=== PATIENT | male | born 1980 | race African-American/Black ===

== ENCOUNTER 2018-01-28 10:02 | Emergency (ER) | payer SELFPAY ==
[2018-01-28] MEDS ORDERED: KETOROLAC 30 MG/ML INJ ONE (10:35)
[2018-01-28] MEDS ORDERED: CYCLOBENZAPRINE 10 MG TAB ONE (10:35)
[2018-01-28] MEDS ORDERED: HYDROCODONE/APAP 5/325 MG TAB ONE (10:36)
--- NOTE | 2018-01-28 11:00 | ER ---
Nurse's Notes [facility] Name: Anderson Choudhury Age: 37 yrs Sex: Male : 1980 Arrival Date: 01/28/2018 Time: 10:03 Bed 18 Private MD: Diagnosis: Strain of muscle, fascia and tendon of left hip Presentation: 01/28 10:08 Presenting complaint: Patient states: Left low back and hip pain for 3 days that is aj worse with movement. Reports tingling in left leg. Reports "stepping in a hole 3 days ago.". Transition of care: patient was not received from another setting of care. Onset of symptoms was January 28, 2018. Risk Assessment: Do you want to hurt yourself or someone else? Patient reports no desire to harm self or others. Initial Sepsis Screen: Does the patient meet any 2 criteria? No. Patient's initial sepsis screen is negative. Does the patient have a suspected source of infection? No. Patient's initial sepsis screen is negative. Care prior to arrival: None. 10:08 Method Of Arrival: Wheelchair aj 10:08 Acuity: MALATHI 4 aj Triage Assessment: 10:08 General: Appears in no apparent distress. comfortable, Behavior is calm, cooperative, aj appropriate for age. Pain: Complains of pain in buttocks and left leg. Neuro: Level of Consciousness is awake, alert, obeys commands, Oriented to person, place, time, situation, Appropriate for age. Respiratory: Airway is patent Respiratory effort is even, unlabored, Respiratory pattern is regular, symmetrical. Derm: Skin is intact, is healthy with good turgor, Skin is pink, warm \\T\\ dry. normal. Musculoskeletal: Reports pain in buttocks and left leg. Historical: - Allergies: 10:08 No Known Allergies; aj - Home Meds: 10:08 None [Active]; aj - PMHx: 10:08 None; aj - PSHx: 10:08 Hernia repair; aj - Immunization history:: Adult Immunizations up to date. - Social history:: Smoking status: Patient uses tobacco products, smokes one-half pack cigarettes per day. - Ebola Screening: : Patient negative for fever greater than or equal to 101.5 degrees Fahrenheit, and additional compatible Ebola Virus Disease symptoms Patient denies exposure to infectious person Patient denies travel to an Ebola-affected area in the 21 days before illness onset No symptoms or risks identified at this time. Screenin:12 Abuse screen: Denies threats or abuse. Denies injuries from another. Nutritional hj screening: No deficits noted. Tuberculosis screening: No symptoms or risk factors identified. Fall Risk None identified. Assessment: 10:13 General: Appears in no apparent distress. uncomfortable, Behavior is calm, cooperative, hj appropriate for age. Pain: Complains of pain in left low back and buttocks. Pain: Pain radiates to left leg. Neuro: Level of Consciousness is awake, alert, obeys commands, Oriented to. Cardiovascular: Capillary refill < 3 seconds Patient's skin is warm and dry. Respiratory: Airway is patent Respiratory effort is even, unlabored, Respiratory pattern is regular, symmetrical. GI: No signs and/or symptoms were reported involving the gastrointestinal system. : No signs and/or symptoms were reported regarding the genitourinary system. EENT: No signs and/or symptoms were reported regarding the EENT system. Derm: No signs and/or symptoms reported regarding the dermatologic system. Musculoskeletal: Circulation, motion, and sensation intact. Capillary refill Range of motion:. Vital Signs: 10:08 BP 127 / 91; Pulse 65; Resp 19; Temp 97.0; Pulse Ox 100% on R/A; Weight 108.86 kg; aj Height 6 ft. 2 in. (187.96 cm); 11:09 BP 125 / 85; Pulse 62; Resp 18; Pulse Ox 100% on R/A; hj 10:08 Body Mass Index 30.81 (108.86 kg, 187.96 cm) aj ED Course: 10:03 Patient arrived in ED. rg4 10:05 Mark Gurrola NP is PHCP. pm1 10:05 Amilcar Santos MD is Attending Physician. pm1 10:08 Triage completed. aj 10:08 Arm band placed on left wrist. Patient placed in an exam room. aj 10:12 Quinton Woodson, BETHANY is Primary Nurse. hj 10:12 Patient has correct armband on for positive identification. Bed in low position. Call hj light in reach. Side rails up X 1. Adult w/ patient. 11:08 No provider procedures requiring assistance completed. Patient did not have IV access hj during this emergency room visit. Administered Medications: 10:21 Drug: TORadol 60 mg Route: IM; Site: right deltoid; 11:10 Follow up: Response: No adverse reaction; Pain is decreased hj 10: Drug: Flexeril 10 mg Route: PO; hj 11: Follow up: Response: No adverse reaction hj 10: Drug: Sunspot 5 mg-325 mg 1 tabs Route: PO; hj 11: Follow up: Response: No adverse reaction; Pain is decreased Outcome: 11:00 Discharge ordered by . pm1 11:08 Discharged to home ambulatory. 11: Condition: stable 11:08 Discharge instructions given to patient, Instructed on discharge instructions, follow up and referral plans. medication usage, Demonstrated understanding of instructions, follow-up care, medications, Prescriptions given X 3. 11:10 Patient left the ED. Signatures: Nay Joshua RN RN aj Joaquin, Henry, RN RN hj Marinas, Patrick, CDA TEACHER CDA TEACHER pm1 Morenita Springer rg4 Corrections: (The following items were deleted from the chart) 10:10 10:08 Presenting complaint: Patient states: Left low back and hip pain this AM that is aj worse with movement. Reports tingling in left leg aj
--- NOTE | 2018-01-28 11:00 | EDPHYS ---
Physician Documentation [facility] Name: Anderson Choudhury Age: 37 yrs Sex: Male : 1980 Arrival Date: 01/28/2018 Time: 10:03 Bed 18 Private MD: ED Physician Amilcar Santos HPI: 01/28 10:22 This 37 yrs old Black Male presents to ER via Wheelchair with complaints of Left Hip pm1 Pain, Low Back Pain. 10:22 The patient or guardian reports pain. that occurred at home, sustained from Stepped pm1 into hole with left foot while mowing the lawn There is no obvious deformity, The patient is able to self ambulate. The patient is able to bear their full body weight. The patient's discomfort radiated to the left foot but it has resolved. The complaints affect the left hip. Onset: The symptoms/episode began/occurred 3 day(s) ago. Modifying factors: The symptoms are alleviated by rest, the symptoms are aggravated by weight bearing. Associated signs and symptoms: Pertinent negatives: chest pain, dysuria, fever, incontinence, nausea, shortness of breath, vomiting. Severity of symptoms: in the emergency department the symptoms have improved, markedly. The patient has not experienced similar symptoms in the past. The patient has not recently seen a physician. Patient was mowing the lawn and stepped into a hole with his left foot. Patient had pain to left lower back and hip after stepping in the hole 3 days ago. Back pain has resolved and his symptoms have improved markedly. He had pain in his left hip that radiated to his left foot and great toe but the radiation has resolved. Only remaining pain is in his left hip. Historical: - Allergies: 10:08 No Known Allergies; aj - Home Meds: 10:08 None [Active]; aj - PMHx: 10:08 None; aj - PSHx: 10:08 Hernia repair; aj - Immunization history:: Adult Immunizations up to date. - Social history:: Smoking status: Patient uses tobacco products, smokes one-half pack cigarettes per day. - Ebola Screening: : Patient negative for fever greater than or equal to 101.5 degrees Fahrenheit, and additional compatible Ebola Virus Disease symptoms Patient denies exposure to infectious person Patient denies travel to an Ebola-affected area in the 21 days before illness onset No symptoms or risks identified at this time. ROS: 10:22 Constitutional: Negative for fever, chills, and weight loss, Eyes: Negative for injury, pm1 pain, redness, and discharge, ENT: Negative for injury, pain, and discharge, Neck: Negative for injury, pain, and swelling, Cardiovascular: Negative for chest pain, palpitations, and edema, Respiratory: Negative for shortness of breath, cough, wheezing, and pleuritic chest pain, Abdomen/GI: Negative for abdominal pain, nausea, vomiting, diarrhea, and constipation, Back: Negative for injury and pain, : Negative for injury, bleeding, discharge, and swelling. 10:22 Skin: Negative for injury, rash, and discoloration, Neuro: Negative for headache, weakness, numbness, tingling, and seizure. 10:22 MS/extremity: Positive for pain, of the left hip. Exam: 10:22 Constitutional: This is a well developed, well nourished patient who is awake, alert, pm1 and in no acute distress. Head/Face: Normocephalic, atraumatic. Eyes: Pupils equal round and reactive to light, extra-ocular motions intact. Lids and lashes normal. Conjunctiva and sclera are non-icteric and not injected. Cornea within normal limits. Periorbital areas with no swelling, redness, or edema. ENT: Nares patent. No nasal discharge, no septal abnormalities noted. Tympanic membranes are normal and external auditory canals are clear. Oropharynx with no redness, swelling, or masses, exudates, or evidence of obstruction, uvula midline. Mucous membranes moist. Neck: Trachea midline, no thyromegaly or masses palpated, and no cervical lymphadenopathy. Supple, full range of motion without nuchal rigidity, or vertebral point tenderness. No Meningismus. Chest/axilla: Normal chest wall appearance and motion. Nontender with no deformity. No lesions are appreciated. Cardiovascular: Regular rate and rhythm with a normal S1 and S2. No gallops, murmurs, or rubs. No pulse deficits. Respiratory: Lungs have equal breath sounds bilaterally, clear to auscultation and percussion. No rales, rhonchi or wheezes noted. No increased work of breathing, no retractions or nasal flaring. Abdomen/GI: Soft, non-tender, with normal bowel sounds. No distension or tympany. No guarding or rebound. No evidence of tenderness throughout. Back: No spinal tenderness. No costovertebral tenderness. Full range of motion. Skin: Warm, dry with normal turgor. Normal color with no rashes, no lesions, and no evidence of cellulitis. 10:22 Musculoskeletal/extremity: Extremities: grossly normal except: noted in the Focal point pain to lateral aspect of left gluteus: There is no evidence of decreased ROM, deformity, ecchymosis, swelling, Sensation intact. 10:22 Neuro: Orientation: is normal, Sensation: is normal, no obvious gross deficits, Gait: is steady, at a normal pace, without difficulty. Vital Signs: 10:08 BP 127 / 91; Pulse 65; Resp 19; Temp 97.0; Pulse Ox 100% on R/A; Weight 108.86 kg; aj Height 6 ft. 2 in. (187.96 cm); 11:09 BP 125 / 85; Pulse 62; Resp 18; Pulse Ox 100% on R/A; hj 10:08 Body Mass Index 30.81 (108.86 kg, 187.96 cm) aj MDM: 10:06 Patient medically screened. pm1 10:29 Data reviewed: vital signs. Data interpreted: Pulse oximetry: on room air is 100 %. pm1 Interpretation: normal. Counseling: I had a detailed discussion with the patient and/or guardian regarding: the historical points, exam findings, and any diagnostic results supporting the discharge/admit diagnosis, the need for outpatient follow up, to return to the emergency department if symptoms worsen or persist or if there are any questions or concerns that arise at home. 10:30 Differential diagnosis: hip fracture, arthritis, strain, sciatica. pm1 11:17 ED course: Pain improved with medications 10. Patient walking without any difficulty. pm1 Administered Medications: 10:21 Drug: TORadol 60 mg Route: IM; Site: right deltoid; hj 11:10 Follow up: Response: No adverse reaction; Pain is decreased hj 10:21 Drug: Flexeril 10 mg Route: PO; hj 11:10 Follow up: Response: No adverse reaction hj 10:21 Drug: [place]enac 5 mg-325 mg 1 tabs Route: PO; hj 11:09 Follow up: Response: No adverse reaction; Pain is decreased Disposition: 11:30 Co-signature as Attending Physician, Amilcar Santos MD. rn Disposition: 01/28/18 11:00 Discharged to Home. Impression: Strain of muscle, fascia and tendon of left hip. - Condition is Stable. - Discharge Instructions: Muscle Strain, Sciatica. - Prescriptions for Naprosyn 500 mg Oral Tablet - take 1 tablet by ORAL route 2 times per day take with food; 30 tablet. Tylenol- Codeine #3 300-30 mg Oral Tablet - take 2 tablets by ORAL route every 6 hours As needed; 20 tablet. Cyclobenzaprine 10 mg Oral Tablet - take 1 tablet by ORAL route every 8 hours As needed; 30 tablet. - Work release form, Medication Reconciliation Form, Thank You Letter, Prescription Opioid Use form. - Follow up: Emergency Department; When: As needed; Reason: Worsening of condition. Follow up: Private Physician; When: As needed; Reason: Recheck today's complaints, Continuance of care, Re-evaluation by your physician. - Problem is new. - Symptoms have improved. Signatures: Nay Joshua RN RN aj Nieto, Roman, MD MD rn Joaquin, Henry, RN RN hj Marinas, Patrick, NP AIRCRAFT LINE ASSEMBLER pm1 Corrections: (The following items were deleted from the chart) 11:10 11:00 01/28/2018 11:00 Discharged to Home. Impression: Strain of muscle, fascia and hj tendon of left hip. Condition is Stable. Discharge Instructions: Muscle Strain, Sciatica. Prescriptions for Naprosyn 500 mg Oral Tablet - take 1 tablet by ORAL route 2 times per day take with food; 30 tablet, Tylenol-Codeine #3 300-30 mg Oral Tablet - take 2 tablets by ORAL route every 6 hours As needed; 20 tablet, Cyclobenzaprine 10 mg Oral Tablet - take 1 tablet by ORAL route every 8 hours As needed; 30 tablet. and Forms are Work release form, Medication Reconciliation Form, Thank You Letter, Antibiotic Education, Prescription Opioid Use. Follow up: Emergency Department; When: As needed; Reason: Worsening of condition. Follow up: Private Physician; When: As needed; Reason: Recheck today's complaints, Continuance of care, Re-evaluation by your physician. Problem is new. Symptoms have improved. pm1
== END 2018-01-28 11:10 | disposition home or self-care (01) ==
LOC: ER 10:02
DX: S76.012A Strain of muscle, fascia and tendon of left hip, initial encounter (principal); X58.XXXA Exposure to other specified factors, initial encounter; Y93.H9 Activity, other involving exterior property and land maintenance, building and construction; Y92.007 Garden or yard of unspecified non-institutional (private) residence as the place of occurrence of the external cause; F17.210 Nicotine dependence, cigarettes, uncomplicated
CPT/HCPCS: 96372; 99283

== ENCOUNTER 2019-04-27 06:33 | Emergency (ER) | payer SELFPAY ==
--- NOTE | 2019-04-27 07:00 | EDPHYS ---
Physician Documentation [facility] Name: Anderson Choudhury Age: 39 yrs Sex: Male : 1980 Arrival Date: 04/27/2019 Time: 06:34 Bed 17 Private MD: ED Physician Severino Agrawal HPI: 04/27 08:30 This 39 yrs old Black Male presents to ER via Wheelchair with complaints of Back Pain. snw 08:30 The patient presents with pain that is acute, with no known mechanism of injury. The snw symptoms are located in the low back. Onset: The symptoms/episode began/occurred on awakening this am. The pain does not radiate. Associated signs and symptoms: The patient has no apparent associated signs or symptoms. The problem was sustained pt with heavy lifting at work. Severity of symptoms: At their worst the symptoms were moderate, in the emergency department the symptoms are unchanged. It is unknown whether or not the patient has had similar symptoms in the past. The patient has not recently seen a physician. Historical: - Allergies: 06:58 Pollen; ad1 - Home Meds: 06:58 None [Active]; ad1 - PMHx: 06:58 None; ad1 - PSHx: 06:58 Hernia repair; surgery to finger and scalp; ad1 - Immunization history:: Adult Immunizations up to date. - Social history:: Smoking status: Patient uses tobacco products, smokes more than three packs cigarettes per day. - Ebola Screening: : No symptoms or risks identified at this time. ROS: 08:28 Constitutional: Negative for fever, chills, and weight loss, Eyes: Negative for injury, snw pain, redness, and discharge, ENT: Negative for injury, pain, and discharge, Neck: Negative for injury, pain, and swelling, Cardiovascular: Negative for chest pain, palpitations, and edema, Respiratory: Negative for shortness of breath, cough, wheezing, and pleuritic chest pain, Abdomen/GI: Negative for abdominal pain, nausea, vomiting, diarrhea, and constipation, : Negative for injury, bleeding, discharge, and swelling, MS/Extremity: Negative for injury and deformity, Skin: Negative for injury, rash, and discoloration, Neuro: Negative for headache, weakness, numbness, tingling, and seizure. 08:28 Back: Positive for pain with movement, of the low back area. Exam: 08:26 Constitutional: This is a well developed, well nourished patient who is awake, alert, snw and in no acute distress. Head/Face: Normocephalic, atraumatic. Eyes: Pupils equal round and reactive to light, extra-ocular motions intact. Lids and lashes normal. Conjunctiva and sclera are non-icteric and not injected. Cornea within normal limits. Periorbital areas with no swelling, redness, or edema. ENT: Nares patent. No nasal discharge, no septal abnormalities noted. Tympanic membranes are normal and external auditory canals are clear. Oropharynx with no redness, swelling, or masses, exudates, or evidence of obstruction, uvula midline. Mucous membranes moist. Neck: Trachea midline, no thyromegaly or masses palpated, and no cervical lymphadenopathy. Supple, full range of motion without nuchal rigidity, or vertebral point tenderness. No Meningismus. Chest/axilla: Normal chest wall appearance and motion. Nontender with no deformity. No lesions are appreciated. Cardiovascular: Regular rate and rhythm with a normal S1 and S2. No gallops, murmurs, or rubs. Normal PMI, no JVD. No pulse deficits. Respiratory: Lungs have equal breath sounds bilaterally, clear to auscultation and percussion. No rales, rhonchi or wheezes noted. No increased work of breathing, no retractions or nasal flaring. Abdomen/GI: Soft, non-tender, with normal bowel sounds. No distension or tympany. No guarding or rebound. No evidence of tenderness throughout. Skin: Warm, dry with normal turgor. Normal color with no rashes, no lesions, and no evidence of cellulitis. MS/ Extremity: Pulses equal, no cyanosis. Neurovascular intact. Full, normal range of motion. Neuro: Awake and alert, GCS 15, oriented to person, place, time, and situation. Cranial nerves II-XII grossly intact. Motor strength 5/5 in all extremities. Sensory grossly intact. Cerebellar exam normal. Normal gait. Psych: Awake, alert, with orientation to person, place and time. Behavior, mood, and affect are within normal limits. 08:26 Back: pain, that is very mild, of the right low back, ROM is painful, with flexion, CVA tenderness, is absent, muscle spasm, is appreciated in the right low back. 08:32 Neuro: Exam negative for acute changes. snw Vital Signs: 06:59 BP 137 / 85; Pulse 71; Resp 16; Temp 98.1; Pulse Ox 96% ; Weight 107.95 kg; Height 6 ad1 ft. 3 in. (190.50 cm); Pain 10/10; 06:59 Body Mass Index 29.75 (107.95 kg, 190.50 cm) ad1 MDM: 06:38 Patient medically screened. snw 08:29 Data reviewed: vital signs, nurses notes. Data interpreted: Pulse oximetry: on room air snw is 96 %. Interpretation: acceptable. Counseling: I had a detailed discussion with the patient and/or guardian regarding: the historical points, exam findings, and any diagnostic results supporting the discharge/admit diagnosis, the presence of at least one elevated blood pressure reading (>120/80) during this emergency department visit, the need for outpatient follow up, to return to the emergency department if symptoms worsen or persist or if there are any questions or concerns that arise at home. Special discussion: I have referred the patient to see his PCP for further evaluation of high blood pressure. Based on the history and exam findings, there is no indication for further emergent testing or inpatient evaluation. I discussed with the patient/guardian the need to see the primary care provider for further evaluation of the symptoms. Administered Medications: 07:17 Drug: Motrin 400 mg Route: PO; sv 07:17 Follow up: Response: No adverse reaction; Medication administered at discharge. sv Disposition: 09:36 Co-signature as Attending Physician, Severino Agrawal MD I agree with the assessment and 4 plan of care. Disposition: 04/27/19 06:59 Discharged to Home. Impression: Low back pain. - Condition is Stable. - Discharge Instructions: Back Pain, Adult, Musculoskeletal Pain, Back Injury Prevention, [id number], Heat Therapy. - Prescriptions for Diclofenac Sodium 75 mg Oral Tablet Sustained Release - take 1 tablet by ORAL route 2 times per day; 30 tablet. orphenadrine citrate 100 mg Oral Tablet Sustained Release - take 1 tablet by ORAL route 2 times per day As needed; 20 tablet. - Work release form, Medication Reconciliation Form, Thank You Letter, Antibiotic Education, Prescription Opioid Use form. - Follow up: Private Physician; When: 2 - 3 days; Reason: Recheck today's complaints, Continuance of care, Re-evaluation by your physician. Follow up: Emergency Department; When: As needed; Reason: Worsening of condition. Signatures: Vannessa López RN RN sv Shavon Mack, GANG MOWER OPERATOR-C GANG MOWER OPERATOR-Csnw Amalia Gordon RN RN ad1 Severino Agrawal MD MD tw4 Corrections: (The following items were deleted from the chart) 07:18 06:59 04/27/2019 06:59 Discharged to Home. Impression: Low back pain. Condition is sv Stable. Forms are Medication Reconciliation Form, Thank You Letter, Antibiotic Education, Prescription Opioid Use. Follow up: Private Physician; When: 2 - 3 days; Reason: Recheck today's complaints, Continuance of care, Re-evaluation by your physician. Follow up: Emergency Department; When: As needed; Reason: Worsening of condition. snw 07:20 07:18 04/27/2019 06:59 Discharged to Home. Impression: Low back pain. Condition is sv Stable. Discharge Instructions: Back Pain, Adult, Musculoskeletal Pain, Back Injury Prevention, [id number], Heat Therapy. Prescriptions for Diclofenac Sodium 75 mg Oral Tablet Sustained Release - take 1 tablet by ORAL route 2 times per day; 30 tablet, orphenadrine citrate 100 mg Oral Tablet Sustained Release - take 1 tablet by ORAL route 2 times per day As needed; 20 tablet. and Forms are Medication Reconciliation Form, Thank You Letter, Antibiotic Education, Prescription Opioid Use, Work release form. Follow up: Private Physician; When: 2 - 3 days; Reason: Recheck today's complaints, Continuance of care, Re-evaluation by your physician. Follow up: Emergency Department; When: As needed; Reason: Worsening of condition. sv 08:30 08:26 Constitutional: This is a well developed, well nourished patient who is awake, snw alert, and in no acute distress. Head/Face: Normocephalic, atraumatic. Eyes: Pupils equal round and reactive to light, extra-ocular motions intact. Lids and lashes normal. Conjunctiva and sclera are non-icteric and not injected. Cornea within normal limits. Periorbital areas with no swelling, redness, or edema. ENT: Nares patent. No nasal discharge, no septal abnormalities noted. Tympanic membranes are normal and external auditory canals are clear. Oropharynx with no redness, swelling, or masses, exudates, or evidence of obstruction, uvula midline. Mucous membranes moist. Neck: Trachea midline, no thyromegaly or masses palpated, and no cervical lymphadenopathy. Supple, full range of motion without nuchal rigidity, or vertebral point tenderness. No Meningismus. Chest/axilla: Normal chest wall appearance and motion. Nontender with no deformity. No lesions are appreciated. Cardiovascular: Regular rate and rhythm with a normal S1 and S2. No gallops, murmurs, or rubs. Normal PMI, no JVD. No pulse deficits. Respiratory: Lungs have equal breath sounds bilaterally, clear to auscultation and percussion. No rales, rhonchi or wheezes noted. No increased work of breathing, no retractions or nasal flaring. Abdomen/GI: Soft, non-tender, with normal bowel sounds. No distension or tympany. No guarding or rebound. No evidence of tenderness throughout. Skin: Warm, dry with normal turgor. Normal color with no rashes, no lesions, and no evidence of cellulitis. MS/ Extremity: Pulses equal, no cyanosis. Neurovascular intact. Full, normal range of motion. Neuro: Awake and alert, GCS 15, oriented to person, place, time, and situation. Cranial nerves II-XII grossly intact. Motor strength 5/5 in all extremities. Sensory grossly intact. Cerebellar exam normal. Normal gait. Psych: Awake, alert, with orientation to person, place and time. Behavior, mood, and affect are within normal limits. snw 08:30 08:27 Neuro: Exam negative for snw snw
--- NOTE | 2019-04-27 07:00 | ER ---
Nurse's Notes [facility] Name: Anderson Choudhury Age: 39 yrs Sex: Male : 1980 Arrival Date: 04/27/2019 Time: 06:34 Bed 17 Private MD: Diagnosis: Low back pain Presentation: 04/27 06:53 Presenting complaint: Patient states: i woke up to go to work and my back is killing ad1 me. Patient states pain is in lower back. Transition of care: patient was not received from another setting of care. Onset of symptoms was April 27, 2019. Risk Assessment: Do you want to hurt yourself or someone else? Patient reports no desire to harm self or others. Initial Sepsis Screen: Does the patient meet any 2 criteria? No. Patient's initial sepsis screen is negative. Does the patient have a suspected source of infection? No. Patient's initial sepsis screen is negative. Care prior to arrival: None. 06:53 Method Of Arrival: Wheelchair ad1 06:53 Acuity: MALATHI 4 ad1 Triage Assessment: 07:00 General: Appears in no apparent distress. Behavior is calm, cooperative. Pain: ad1 Complains of pain in lower back Pain currently is 12 out of 10 on a pain scale. Quality of pain is described as patient states he feels a pulling pain, feels like someone is standing on his back. Pain began this morning when he woke up. Musculoskeletal: Range of motion: limited in back due to pain. Historical: - Allergies: 06:58 Pollen; ad1 - Home Meds: 06:58 None [Active]; ad1 - PMHx: 06:58 None; ad1 - PSHx: 06:58 Hernia repair; surgery to finger and scalp; ad1 - Immunization history:: Adult Immunizations up to date. - Social history:: Smoking status: Patient uses tobacco products, smokes more than three packs cigarettes per day. - Ebola Screening: : No symptoms or risks identified at this time. Screenin:18 Abuse screen: Denies threats or abuse. Denies injuries from another. Nutritional sv screening: No deficits noted. Tuberculosis screening: No symptoms or risk factors identified. Fall Risk None identified. Assessment: 07:18 Reassessment: Patient appears in no apparent distress at this time. No changes from sv previously documented assessment. Patient and/or family updated on plan of care and expected duration. Pain level reassessed. Patient is alert, oriented x 3, equal unlabored respirations, skin warm/dry/pink. Vital Signs: 06:59 BP 137 / 85; Pulse 71; Resp 16; Temp 98.1; Pulse Ox 96% ; Weight 107.95 kg; Height 6 ad1 ft. 3 in. (190.50 cm); Pain 10/10; 06:59 Body Mass Index 29.75 (107.95 kg, 190.50 cm) ad1 ED Course: 06:34 Patient arrived in ED. ds1 06:38 Shavon Mack FNP-C is [facility]. snw 06:38 Severino Agrawal MD is Attending Physician. snw 06:56 Triage completed. ad1 07:17 Vannessa López, RN is Primary Nurse. sv 07:18 No provider procedures requiring assistance completed. Patient did not have IV access sv during this emergency room visit. 07:18 Patient has correct armband on for positive identification. Bed in low position. Call sv light in reach. 07:18 Arm band placed on. sv Administered Medications: 07:17 Drug: Motrin 400 mg Route: PO; sv 07:17 Follow up: Response: No adverse reaction; Medication administered at discharge. sv Outcome: 06:59 Discharge ordered by . snw 07:18 Discharged to home ambulatory. sv 07:18 Condition: stable 07:18 Discharge instructions given to patient, Instructed on discharge instructions, follow up and referral plans. no drinking with medication, no driving heavy equipment, medication usage, heat therapy Demonstrated understanding of instructions, follow-up care, medications, Prescriptions given X 2. 07:18 Patient left the ED. sv 07:20 Patient left the ED. sv Signatures: Vannessa López, RN RN sv Shavon Mack FNP-C [employer] PROGRAM MANAGER-Mimi Estrada ds1 Amalia Gordon RN RN ad1
[2019-04-27] MEDS ORDERED: IBUPROFEN 400 MG TAB ONE (07:10)
[2019-04-27 09:16] VITALS: BP 137/85; TEMP 98.1; O2SAT 96
== END 2019-04-27 07:20 | disposition home or self-care (01) ==
LOC: ER 06:33
DX: M54.5 Low back pain (principal); F17.210 Nicotine dependence, cigarettes, uncomplicated
CPT/HCPCS: 99283

== ENCOUNTER 2019-08-04 11:06 | Emergency (ER) | payer SELFPAY ==
--- NOTE | 2019-08-04 12:08 | ER ---
Nurse's Notes [facility] Name: Anderson Choudhury Age: 39 yrs Sex: Male : 1980 Arrival Date: 08/04/2019 Time: 11:07 Bed 5 Private MD: Diagnosis: Contusion of left elbow Presentation: 08/03 11:11 Chief complaint: Patient states: slipped and fell coming out of the bathtub, pt c/o aa5 pain to left shoulder and left elbow, pt describes pain to left elbow as tingling. Denies LOC. 11:11 Coronavirus screen: Proceed with normal triage. Patient denies a cough. Patient denies aa5 shortness of breath or difficulty breathing. Patient denies measured and/or subjective temperature greater than 100.4F prior to today's visit. Patient denies travel on a cruise ship or to a country the [facility] currently lists as an affected area. Patient denies contact with known and/or suspected case of COVID-19. Ebola Screen: Patient negative for fever greater than or equal to 101.5 degrees Fahrenheit, and additional compatible Ebola Virus Disease symptoms. Initial Sepsis Screen: Does the patient meet any 2 criteria? No. Patient's initial sepsis screen is negative. Does the patient have a suspected source of infection? No. Patient's initial sepsis screen is negative. Risk Assessment: Do you want to hurt yourself or someone else? Patient reports no desire to harm self or others. Onset of symptoms was August 04, 2019. 11:11 Acuity: MALATHI 4 aa5 11:11 Method Of Arrival: Ambulatory aa5 Triage Assessment: 11:24 General: Appears in no apparent distress. comfortable, Behavior is cooperative, bp appropriate for age, anxious. Pain: Complains of pain in posterior aspect of left shoulder and left elbow. EENT: No deficits noted. Neuro: No deficits noted. Cardiovascular: No deficits noted. Respiratory: No deficits noted. GI: No signs and/or symptoms were reported involving the gastrointestinal system. : No signs and/or symptoms were reported regarding the genitourinary system. Derm: No deficits noted. Musculoskeletal: Circulation, motion, and sensation intact. Range of motion: intact in all extremities, Swelling absent. Historical: - Allergies: 11:20 Pollen; aa5 - Home Meds: 11:20 None [Active]; aa5 - PMHx: 11:20 None; aa5 - PSHx: 11:20 Hernia repair; surgery to finger and scalp; aa5 - Immunization history:: Adult Immunizations up to date. - Social history:: Smoking status: Patient denies any tobacco usage or history of. Patient uses street drugs, marijuana. Screenin:19 Abuse screen: Denies threats or abuse. Denies injuries from another. Nutritional bp screening: No deficits noted. Tuberculosis screening: No symptoms or risk factors identified. Fall Risk None identified. Assessment: 11:19 General: SEE TRIAGE NOTE. bp 12:04 Reassessment: XRAY COMPLETE, RESULTS PENDING. bp 12:19 Reassessment: PT D/C HOME AMBULATORY, DX WITH CONTUSION. bp Vital Signs: 11:11 Weight 112.49 kg (R); Height 6 ft. 3 in. (190.50 cm) (R); Pain 7/10; aa5 11:12 BP 136 / 90; Pulse 75; Resp 18 S; Temp 97.9(TE); Pulse Ox 96% on R/A; aa5 12:04 BP 133 / 81; Pulse 75; Resp 16; Pulse Ox 95% ; bp 11:11 Body Mass Index 31.00 (112.49 kg, 190.50 cm) aa5 ED Course: 11:07 Patient arrived in ED. ag5 11:11 Arm band placed on. aa5 11:16 Juan Carlos Loja PA is PHCP. jr8 11:16 Talha Sandoval MD is Attending Physician. jr8 11:18 Charlie Bradshaw, BETHANY is Primary Nurse. bp 11:19 Patient has correct armband on for positive identification. Bed in low position. Call bp light in reach. Side rails up X2. 11:20 Triage completed. aa5 12:06 Jose Perez MD is Referral Physician. jr8 12:08 XRAY Elbow LEFT 3 view In Process Unspecified. EDMS 12:19 No provider procedures requiring assistance completed. Patient did not have IV access bp during this emergency room visit. Administered Medications: 12:18 Drug: [place] (7.5 mg-325 mg) 1 tabs Route: PO; bp 12:19 Follow up: Response: Medication administered at discharge. bp Outcome: 12:07 Discharge ordered by . jr8 12:19 Discharged to home ambulatory. bp 12:19 Condition: stable 12:19 Discharge instructions given to patient, Instructed on discharge instructions, follow up and referral plans. Demonstrated understanding of instructions, follow-up care. 12:20 Patient left the ED. bp Signatures: Dispatcher [employer] EDAngella Berman, RN RN aa5 Juan Carlos Loja PA PA jr8 Charlie Bradshaw RN RN bp Abdias Jean 5
--- NOTE | 2019-08-04 12:08 | EDPHYS ---
Physician Documentation [facility] Name: Anderson Choudhury Age: 39 yrs Sex: Male : 1980 Arrival Date: 08/04/2019 Time: 11:07 Bed 5 Private MD: ED Physician Talha Sandoval HPI: 08/03 11:43 This 39 yrs old Black Male presents to ER via Ambulatory with complaints of Fall Injury.jr8 11:43 Details of fall: The patient fell from an upright position, while standing. Onset: The jr8 symptoms/episode began/occurred acutely, yesterday. Associated injuries: The patient sustained left elbow, decreased range of motion, painful injury, swelling. Severity of symptoms: At their worst the symptoms were moderate, in the emergency department the symptoms are unchanged. The patient has not experienced similar symptoms in the past. The patient has not recently seen a physician. Stated that he slipped in bathtub hitting his elbow and knee. Knee feels fine but elbow pain not going away and noticed swelling with and that he had some mild decreased ROM secondary to pain. Denies hitting head or neck. No LOC . Historical: - Allergies: 11:20 Pollen; aa5 - Home Meds: 11:20 None [Active]; aa5 - PMHx: 11:20 None; aa5 - PSHx: 11:20 Hernia repair; surgery to finger and scalp; aa5 - Immunization history:: Adult Immunizations up to date. - Social history:: Smoking status: Patient denies any tobacco usage or history of. Patient uses street drugs, marijuana. ROS: 11:43 Eyes: Negative for injury, pain, redness, and discharge, ENT: Negative for injury, jr8 pain, and discharge, Neck: Negative for injury, pain, and swelling, Cardiovascular: Negative for chest pain, palpitations, and edema, Respiratory: Negative for shortness of breath, cough, wheezing, and pleuritic chest pain, Abdomen/GI: Negative for abdominal pain, nausea, vomiting, diarrhea, and constipation, Back: Negative for injury and pain, Skin: Negative for injury, rash, and discoloration, Neuro: Negative for headache, weakness, numbness, tingling, and seizure. 11:43 MS/extremity: Positive for decreased range of motion, pain, swelling, tenderness, of the left elbow. Exam: 11:43 Eyes: Pupils equal round and reactive to light, extra-ocular motions intact. Lids and jr8 lashes normal. Conjunctiva and sclera are non-icteric and not injected. Cornea within normal limits. Periorbital areas with no swelling, redness, or edema. ENT: Nares patent. No nasal discharge, no septal abnormalities noted. Tympanic membranes are normal and external auditory canals are clear. Oropharynx with no redness, swelling, or masses, exudates, or evidence of obstruction, uvula midline. Mucous membranes moist. Neck: Trachea midline, no thyromegaly or masses palpated, and no cervical lymphadenopathy. Supple, full range of motion without nuchal rigidity, or vertebral point tenderness. No Meningismus. Cardiovascular: Regular rate and rhythm with a normal S1 and S2. No gallops, murmurs, or rubs. Normal PMI, no JVD. No pulse deficits. Respiratory: Lungs have equal breath sounds bilaterally, clear to auscultation and percussion. No rales, rhonchi or wheezes noted. No increased work of breathing, no retractions or nasal flaring. Abdomen/GI: Soft, non-tender, with normal bowel sounds. No distension or tympany. No guarding or rebound. No evidence of tenderness throughout. Back: No spinal tenderness. No costovertebral tenderness. Full range of motion. Skin: Warm, dry with normal turgor. Normal color with no rashes, no lesions, and no evidence of cellulitis. Neuro: Awake and alert, GCS 15, oriented to person, place, time, and situation. Cranial nerves II-XII grossly intact. Motor strength 5/5 in all extremities. Sensory grossly intact. Cerebellar exam normal. Normal gait. 11:43 Musculoskeletal/extremity: Extremities: grossly normal except: noted in the left arm: Patient has mild lateral swelling noted to left elbow with moderate pain to palpation of that region and posterior elbow region. Decreased ROM with extension. Normal Sensation present with 2 + radial pulses bilaterally . Vital Signs: 11:11 Weight 112.49 kg (R); Height 6 ft. 3 in. (190.50 cm) (R); Pain 7/10; aa5 11:12 BP 136 / 90; Pulse 75; Resp 18 S; Temp 97.9(TE); Pulse Ox 96% on R/A; aa5 12:04 BP 133 / 81; Pulse 75; Resp 16; Pulse Ox 95% ; bp 11:11 Body Mass Index 31.00 (112.49 kg, 190.50 cm) aa5 MDM: 11:16 Patient medically screened. jr8 12:06 Data reviewed: vital signs, nurses notes, radiologic studies, plain films. Data jr8 interpreted: Pulse oximetry: on room air is 95 %. Interpretation: normal. Test interpretation: by ED physician or midlevel provider: plain radiologic studies, No acute fracture noted to left elbow plain films . Counseling: I had a detailed discussion with the patient and/or guardian regarding: the historical points, exam findings, and any diagnostic results supporting the discharge/admit diagnosis, radiology results, the need for outpatient follow up, a orthopedic surgeon, to return to the emergency department if symptoms worsen or persist or if there are any questions or concerns that arise at home. 08/03 11:33 Order name: XRAY Elbow LEFT 3 view; Complete Time: 07:20 jr8 Administered Medications: 12:18 Drug: [place] (7.5 mg-325 mg) 1 tabs Route: PO; bp 12:19 Follow up: Response: Medication administered at discharge. bp Disposition: 12:55 Co-signature as Attending Physician, Talha Sandoval MD I agree with the assessment and kdr plan of care. Disposition: 08/04/19 12:07 Discharged to Home. Impression: Contusion of left elbow. - Condition is Stable. - Discharge Instructions: Elbow Contusion. - Work release form, Medication Reconciliation Form, Thank You Letter, Antibiotic Education, Prescription Opioid Use form. - Follow up: Jose Perez MD; When: 7 - 10 days; Reason: Recheck today's complaints, Continuance of care, Re-evaluation by your physician. - Problem is new. - Symptoms have improved. - Notes: Continue Ibuprofen at home Ice on/off as needed for swelling and pain. No longer then 20 min Signatures: Dispatcher [employer] EDMS Talha Sandoval MD MD [facility] Angella Mix RN RN aa5 Juan Carlos Loja PA PA jr8 Charlie Bradshaw, BETHANY RN bp Corrections: (The following items were deleted from the chart) 12:20 12:07 08/04/2019 12:07 Discharged to Home. Impression: Contusion of left elbow. bp Condition is Stable. Forms are Medication Reconciliation Form, Thank You Letter, Antibiotic Education, Prescription Opioid Use. Follow up: Jose Perez; When: 7 - 10 days; Reason: Recheck today's complaints, Continuance of care, Re-evaluation by your physician. Problem is new. Symptoms have improved. jr8
--- NOTE | 2019-08-04 12:15 | RAD REPORT ---
EXAM DESCRIPTION: RAD - Elbow Left 3 View - 08/04/2019 12:07 pm CLINICAL HISTORY: PAIN Fall, pain COMPARISON: No comparisons FINDINGS: No fracture or dislocation seen.
[2019-08-04] MEDS ORDERED: HYDROCODONE/APAP 7.5/325 MG TAB ONE (12:20)
[2019-08-04 12:27] VITALS: TEMP 97.9
[2019-08-04 12:29] VITALS: BP 133/81; O2SAT 95
== END 2019-08-04 12:20 | disposition home or self-care (01) ==
LOC: ER 11:06
DX: S50.02XA Contusion of left elbow, initial encounter (principal); W01.198A Fall on same level from slipping, tripping and stumbling with subsequent striking against other object, initial encounter; Y93.9 Activity, unspecified; Y92.9 Unspecified place or not applicable
CPT/HCPCS: 99283

== ENCOUNTER 2019-08-23 13:18 | Emergency (ER) | payer SELFPAY ==
--- NOTE | 2019-08-23 14:04 | EDPHYS ---
Physician Documentation [facility] Name: Anderson Choudhury Age: 39 yrs Sex: Male : 1980 Arrival Date: 08/23/2019 Time: 13:21 Bed 28 Private MD: ED Physician Gunner Wynn HPI: 08/22 13:47 This 39 yrs old Black Male presents to ER via Ambulatory with complaints of Toothache, jmm Ear Pain, Sore Throat. 13:47 The patient presents with pain. Onset: The symptoms/episode began/occurred gradually, 2 jmm day(s) ago. Modifying factors: The symptoms are alleviated by nothing, the symptoms are aggravated by chewing, cold fluids, food. Associated signs and symptoms: Pertinent positives: pain, Pertinent negatives: fever. This is a 39 year old male with no chronic medical conditions that presents to the ED with complaints of pain in the right side of his mouth which radiates into the right ear, nostril, and throat. Denies fever. . Historical: - Allergies: 13:44 Pollen; ca1 - Home Meds: 13:44 None [Active]; ca1 - PMHx: 13:44 None; ca1 - PSHx: 13:44 Hernia repair; surgery to finger and scalp; ca1 - Immunization history:: Adult Immunizations up to date. - Social history:: Smoking status: Patient/guardian denies using tobacco, Stopped _ months ago 1. ROS: 13:47 Constitutional: Negative for fever, chills, and weight loss. jmm 13:47 Neck: Negative for injury, pain, and swelling, Cardiovascular: Negative for chest pain, palpitations, and edema, Respiratory: Negative for shortness of breath, cough, wheezing, and pleuritic chest pain, Abdomen/GI: Negative for abdominal pain, nausea, vomiting, diarrhea, and constipation, Back: Negative for injury and pain, Neuro: Negative for headache, weakness, numbness, tingling, and seizure. 13:47 ENT: Positive for dental pain, ear pain. 13:47 All other systems are negative. Exam: 13:47 Constitutional: This is a well developed, well nourished patient who is awake, alert, jmm and in no acute distress. Head/Face: atraumatic. Eyes: EOMI, no conjunctival erythema appreciated 13:47 Neck: Trachea midline, Supple Chest/axilla: Normal chest wall appearance and motion. Cardiovascular: Regular rate and rhythm. No edema appreciated Respiratory: Normal respirations, no respiratory distress appreciated Abdomen/GI: Non distended, soft Back: Normal ROM Skin: General appearance color normal MS/ Extremity: Moves all extremities, no obvious deformities appreciated, no edema noted to the lower extremities Neuro: Awake and alert, normal gait Psych: Behavior is normal, Mood is normal, Patient is cooperative and pleasant 13:47 ENT: no gingival swelling appreciated, ulcer noted to the right oral mucosa, very ttp. Vital Signs: 13:41 BP 126 / 89; Pulse 80; Resp 16 S; Temp 98.6(O); Pulse Ox 98% on R/A; Weight 112.49 kg ca1 (R); Height 6 ft. 3 in. (190.50 cm) (R); Pain 9/10; 14:00 BP 122 / 80; Pulse 72; Resp 14; Pulse Ox 100% on R/A; Pain 3/10; ls4 13:41 Body Mass Index 31.00 (112.49 kg, 190.50 cm) ca1 MDM: 13:47 Patient medically screened. [facility] 14:02 Data reviewed: vital signs, nurses notes. Counseling: I had a detailed discussion with kaley the patient and/or guardian regarding: the historical points, exam findings, and any diagnostic results supporting the discharge/admit diagnosis, the need for outpatient follow up, to return to the emergency department if symptoms worsen or persist or if there are any questions or concerns that arise at home. ED course: Patient is alert and non toxic in appearance in the ED. Will follow up with dentist in 1 week. Advised to return to the ED if symptoms worsen. Patient advised of the possibility of cancer. Patient understood and agrees with the plan of care. . Administered Medications: 14:22 Drug: Viscous Lidocaine Liquid (4 %) 10 ml Route: Mucous Membrane; ls4 14:22 Drug: Tylenol 650 mg Route: PO; ls4 Disposition: 08/23 09:43 Co-signature as Attending Physician, Gunner Wynn MD I agree with the assessment and lupe plan of care. Disposition: 08/23/19 14:04 Discharged to Home. Impression: Unspecified lesions of oral mucosa. - Condition is Stable. - Discharge Instructions: Canker Sores. - Prescriptions for Amoxicillin 875 mg Oral Tablet - take 1 tablet by ORAL route every 12 hours for 10 days; 20 tablet. Ultracet 37.5- 325 mg Oral Tablet - take 1 tablet by ORAL route every 6 hours - for up to 5 days; do not exceed 8 tablets per day.; 20 tablet. - Medication Reconciliation Form, Thank You Letter, Antibiotic Education, Prescription Opioid Use, Work release form form. - Follow up: Private Physician; When: 2 - 3 days; Reason: Recheck today's complaints, Continuance of care, Re-evaluation by your physician. Signatures: Gunner Wynn MD MD cha Mickail, Joel, PA PA jmm Stewart, Lisa RN RN ls4 AcAnaly hope RN RN ca1 Corrections: (The following items were deleted from the chart) 08/22 14:22 14:04 08/23/2019 14:04 Discharged to Home. Impression: Unspecified lesions of oral ls4 mucosa. Condition is Stable. Forms are Medication Reconciliation Form, Thank You Letter, Antibiotic Education, Prescription Opioid Use. Follow up: Private Physician; When: 2 - 3 days; Reason: Recheck today's complaints, Continuance of care, Re-evaluation by your physician. kaley 14:54 14:02 ED course: Patient is alert and non toxic in appearance in the ED. Will follow up kaley with dentist in 1 week. Advised to return to the ED if symptoms worsen. Patient understood and agrees with the plan of care. . kaley
--- NOTE | 2019-08-23 14:04 | ER ---
Nurse's Notes [facility] Name: Anderson Choudhury Age: 39 yrs Sex: Male : 1980 Arrival Date: 08/23/2019 Time: 13:21 Bed 28 Private MD: Diagnosis: Unspecified lesions of oral mucosa Presentation: 08/22 13:41 Chief complaint: Patient states: Toothache since 2 days, radiating to the R ear and R ca1 neck. Has a dentist appointment next Thursday but the pain has gotten worse. Coronavirus screen: Proceed with normal triage. Patient denies a cough. Patient denies shortness of breath or difficulty breathing. Patient denies measured and/or subjective temperature greater than 100.4F prior to today's visit. Patient denies travel on a cruise ship or to a country the [facility] currently lists as an affected area. Patient denies contact with known and/or suspected case of COVID-19. Ebola Screen: Patient negative for fever greater than or equal to 101.5 degrees Fahrenheit, and additional compatible Ebola Virus Disease symptoms Patient denies exposure to infectious person. Patient denies travel to an Ebola-affected area in the 21 days before illness onset. No symptoms or risks identified at this time. Initial Sepsis Screen: Does the patient meet any 2 criteria? No. Patient's initial sepsis screen is negative. Does the patient have a suspected source of infection? No. Patient's initial sepsis screen is negative. Risk Assessment: Do you want to hurt yourself or someone else? Patient reports no desire to harm self or others. Onset of symptoms was August 23, 2019. 13:41 Method Of Arrival: Ambulatory ca1 13:41 Acuity: MALATHI 5 ca1 Triage Assessment: 14:00 General: Appears in no apparent distress. uncomfortable, Behavior is calm, cooperative. ls4 EENT: Oral mucosa is moist. palate reddented on upper left and patient reports pain . Historical: - Allergies: 13:44 Pollen; ca1 - Home Meds: 13:44 None [Active]; ca1 - PMHx: 13:44 None; ca1 - PSHx: 13:44 Hernia repair; surgery to finger and scalp; ca1 - Immunization history:: Adult Immunizations up to date. - Social history:: Smoking status: Patient/guardian denies using tobacco, Stopped _ months ago 1. Screenin:00 Fall Risk None identified. ls4 08/23 00:28 Abuse screen: Denies threats or abuse. Denies injuries from another. Nutritional ls4 screening: No deficits noted. Tuberculosis screening: No symptoms or risk factors identified. Assessment: 08/22 14:06 EENT: Reports pain. ls4 Vital Signs: 13:41 BP 126 / 89; Pulse 80; Resp 16 S; Temp 98.6(O); Pulse Ox 98% on R/A; Weight 112.49 kg ca1 (R); Height 6 ft. 3 in. (190.50 cm) (R); Pain 9/10; 14:00 BP 122 / 80; Pulse 72; Resp 14; Pulse Ox 100% on R/A; Pain 3/10; ls4 13:41 Body Mass Index 31.00 (112.49 kg, 190.50 cm) ca1 ED Course: 13:21 Patient arrived in ED. mr 13:44 Triage completed. ca1 13:44 Arm band placed on right wrist. ca1 13:46 Noah Alcocer PA is PHCP. [facility] 13:46 Gunner Wynn MD is Attending Physician. [facility] 14:00 Patient has correct armband on for positive identification. Bed in low position. Call ls4 light in reach. Side rails up X 1. Pulse ox on. NIBP on. 14:00 No provider procedures requiring assistance completed. Patient did not have IV access ls4 during this emergency room visit. Administered Medications: 14:22 Drug: Viscous Lidocaine Liquid (4 %) 10 ml Route: Mucous Membrane; ls4 14:22 Drug: Tylenol 650 mg Route: PO; ls4 Outcome: 14:04 Discharge ordered by . [facility] 14:20 Discharged to home ambulatory. ls4 14:20 Condition: stable 14:20 Discharge instructions given to patient, Instructed on discharge instructions, follow up and referral plans. medication usage, Demonstrated understanding of instructions, follow-up care, medications, Prescriptions given X 1. 14:22 Patient left the ED. ls4 Signatures: Noah Alcocer PA PA jmm Rivera, Mary Rebekah Simon RN RN ls4 Analy Kasper RN RN ca1
[2019-08-23] MEDS ORDERED: ACETAMINOPHEN 325 MG TABLET ONE (14:22)
[2019-08-23] MEDS ORDERED: LIDOCAINE VISCOUS 2% SOLN 15 ML UDC ONE (14:22)
[2019-08-23 14:31] VITALS: BP 126/89; TEMP 98.6; O2SAT 98
== END 2019-08-23 14:22 | disposition home or self-care (01) ==
LOC: ER 13:18
DX: K13.70 Unspecified lesions of oral mucosa (principal); J30.1 Allergic rhinitis due to pollen
CPT/HCPCS: 99283